=== PATIENT | male | born 1955 | race Caucasian/White ===

== ENCOUNTER 2018-03-16 13:36 | Emergency (ER) | payer OTHER ==
[2018-03-16 16:22] LABS: ABNORMAL IP MESSAGE 1; HEMATOCRIT 21.4 % (42.0-52.0); MEAN CORPUSCULAR HEMOGLOBIN 29.9 pg (29.0-33.0); MEAN CORPUSCULAR HGB CONC 32.2 g/dl (32.0-37.0); MEAN CORPUSCULAR VOLUME 92.6 fl (82.0-101.0); MEAN PLATELET VOLUME 10.2 fl (7.4-10.4); PLATELET COUNT 113 10^3/UL (140-415); POSITIVE DIFF @See below; RED BLOOD COUNT 2.31 10^6/ul (4.70-6.10); RED CELL DISTRIBUTION WIDTH 21.2 % (11.5-14.5)
[2018-03-16 16:22] LABS: WHITE BLOOD COUNT 7.9 10^3/ul (4.8-10.8)
[2018-03-16 16:27] LABS: ADD MAN DIFF? YES; HEMOGLOBIN 6.9 g/dl (14.0-18.0)
[2018-03-16 16:42] LABS: INR 1.13; PROTIME 14.7 Sec (11.9-14.9); PT RATIO 1.1
[2018-03-16 16:43] LABS: PARTIAL THROMBOPLASTIN TIME 33.8 Sec (23.0-35.0)
[2018-03-16 16:45] LABS: ALANINE AMINOTRANSFERASE 36 IU/L (13-69); ALBUMIN 3.1 g/dl (3.3-4.9); ALBUMIN/GLOBULIN RATIO 0.83; ALKALINE PHOSPHATASE 92 IU/L (42-121); ANION GAP 9 (5-13); ASPARTATE AMINO TRANSFERASE 40 IU/L (15-46); BILIRUBIN,INDIRECT 1.4 mg/dl (0-1.1); BILIRUBIN,TOTAL 1.4 mg/dl (0.2-1.3); BLOOD UREA NITROGEN 15 mg/dl (7-20); CALCIUM 9.3 mg/dl (8.4-10.2); CARBON DIOXIDE 22 mmol/L (21-31); CHLORIDE 103 mmol/L (97-110); CREATININE 0.99 mg/dl (0.61-1.24); Estimated GFR > 60 mL/min (>60); GLUCOSE 93 mg/dl (70-220); SODIUM 134 mmol/L (135-144); TOTAL PROTEIN 6.8 g/dl (6.1-8.1)
[2018-03-16 16:56] LABS: TROPONIN-I < 0.012 ng/ml (0.000-0.120)
[2018-03-16 17:15] LABS: ANISOCYTOSIS 1+ (0-0); BAND NEUTROPHILS #M 0.6 10^3/ul (0.0-0.6); BAND NEUTROPHILS % (M) 8 % (0-4); HYPOCHROMASIA 2+ (0-0); LYMPHOCYTES #M 1.5 10^3/ul (0.8-2.9); LYMPHOCYTES % (M) 20 % (15-51); MICROCYTOSIS 1+ (0-0); MONOCYTE #M 0.8 10^3/ul (0.3-0.9); MONOCYTES % (M) 11 % (0-11); MYELOCYTES % (M) 1 % (0-0); PLATELET ESTIMATE DECREASED; POLYCHROMASIA 1+ (0-0); SEG NEUT #M 4.8 10^3/ul (1.6-7.5); SEGMENTED NEUTROPHILS (M) % 60 % (39-77); SMUDGE%M 2 % (0-0)
[2018-03-16 20:05] LABS: IMMEDIATE SPIN CROSSMATCH 1 2
== END 2018-03-16 23:13 | disposition home or self-care (01) ==
LOC: E/R 13:36
PROVIDERS: Pediatrics
DX: D64.9 Anemia, unspecified (principal); D69.6 Thrombocytopenia, unspecified; R53.83 Other fatigue; Z85.118 Personal history of other malignant neoplasm of bronchus and lung; Z87.891 Personal history of nicotine dependence
CPT/HCPCS: 36415; 36430; 80053; 84484; 85025; 85610; 85730; 86850; 86900; 86901; 86920; 93005; 99284-25

== ENCOUNTER 2018-08-30 18:45 | Inpatient (IN) | payer OTHER ==
[2018-08-30] MEDS: SOD CHLORIDE 0.9% 1,000 ML IV (19:36)
[2018-08-30 19:39] LABS: ADD MAN DIFF? NO
[2018-08-30] MEDS: ONDANSETRON 4 MG INJ IV (19:41)
[2018-08-30 19:44] LABS: WHITE BLOOD COUNT 19.9 10^3/ul (4.8-10.8)
[2018-08-30 19:44] LABS: BASOPHILS % 0.2 % (0.0-2.0); EOSINOPHILS # 0.1 10^3/ul (0.0-0.5); EOSINOPHILS % 0.6 % (0.0-7.0); HEMATOCRIT 30.6 % (42.0-52.0); HEMOGLOBIN 9.4 g/dl (14.0-18.0); LYMPHOCYTES # 1.5 10^3/ul (0.8-2.9); LYMPHOCYTES % 7.4 % (15.0-51.0); MEAN CORPUSCULAR HEMOGLOBIN 23.6 pg (29.0-33.0); MEAN CORPUSCULAR HGB CONC 30.7 g/dl (32.0-37.0); MEAN CORPUSCULAR VOLUME 76.7 fl (82.0-101.0); MEAN PLATELET VOLUME 9.2 fl (7.4-10.4); MONOCYTE # 1.3 10^3/ul (0.3-0.9); MONOCYTES % 6.5 % (0.0-11.0); NEUTROPHIL # 16.8 10^3/ul (1.6-7.5); NEUTROPHILS % 84.2 % (39.0-77.0); PLATELET COUNT 372 10^3/UL (140-415); RED BLOOD COUNT 3.99 10^6/ul (4.70-6.10); RED CELL DISTRIBUTION WIDTH 16.4 % (11.5-14.5)
[2018-08-30 20:00] LABS: INR 1.23; PROTIME 15.6 Sec (11.9-14.9); PT RATIO 1.2
[2018-08-30 20:01] LABS: PARTIAL THROMBOPLASTIN TIME 26.3 Sec (23.0-35.0)
[2018-08-30 20:04] LABS: ALANINE AMINOTRANSFERASE 71 IU/L (13-69); ALBUMIN 3.4 g/dl (3.3-4.9); ALBUMIN/GLOBULIN RATIO 0.87; ALKALINE PHOSPHATASE 120 IU/L (42-121); ANION GAP 10 (5-13); ASPARTATE AMINO TRANSFERASE 77 IU/L (15-46); BILIRUBIN,INDIRECT 0.1 mg/dl (0-1.1); BILIRUBIN,TOTAL 0.1 mg/dl (0.2-1.3); BLOOD UREA NITROGEN 37 mg/dl (7-20); CALCIUM 12.4 mg/dl (8.4-10.2); CARBON DIOXIDE 26 mmol/L (21-31); CHLORIDE 95 mmol/L (97-110); CREATININE 1.33 mg/dl (0.61-1.24); Estimated GFR 55 mL/min (>60); GLUCOSE 102 mg/dl (70-220); LIPASE 21 U/L (23-300); POTASSIUM 4.2 mmol/L (3.5-5.1); SODIUM 131 mmol/L (135-144); TOTAL PROTEIN 7.3 g/dl (6.1-8.1)
[2018-08-30 20:16] LABS: TROPONIN-I < 0.012 ng/ml (0.000-0.120)
[2018-08-31] MEDS ORDERED: ALBUTEROL/IPRATROPIUM (NEB) 3 ML AMP HHN
[2018-08-31] MEDS ORDERED: NACL 0.9% 3 ML SYG IV
[2018-08-31] MEDS ORDERED: ACETAMINOPHEN 325 MG TAB PO
[2018-08-31] MEDS: SOD CHLORIDE 0.9% 1,000 ML IV ×3 (00:43→20:34)
[2018-08-31] MEDS: HYDROCODONE/APAP (5/325) TAB PO (03:08)
[2018-08-31] MEDS: KETOROLAC 30 MG INJ IV (04:50)
[2018-08-31 05:59] LABS: ADD MAN DIFF? NO
[2018-08-31 06:03] LABS: BASOPHILS % 0.2 % (0.0-2.0); EOSINOPHILS # 0.3 10^3/ul (0.0-0.5); EOSINOPHILS % 1.8 % (0.0-7.0); HEMOGLOBIN 8.6 g/dl (14.0-18.0); LYMPHOCYTES # 0.9 10^3/ul (0.8-2.9); LYMPHOCYTES % 5.7 % (15.0-51.0); MEAN CORPUSCULAR HEMOGLOBIN 23.9 pg (29.0-33.0); MEAN CORPUSCULAR HGB CONC 30.7 g/dl (32.0-37.0); MEAN CORPUSCULAR VOLUME 77.8 fl (82.0-101.0); MEAN PLATELET VOLUME 9.8 fl (7.4-10.4); MONOCYTE # 0.9 10^3/ul (0.3-0.9); MONOCYTES % 5.9 % (0.0-11.0); NEUTROPHIL # 13.7 10^3/ul (1.6-7.5); NEUTROPHILS % 85.4 % (39.0-77.0); PLATELET COUNT 311 10^3/UL (140-415); RED CELL DISTRIBUTION WIDTH 16.2 % (11.5-14.5)
[2018-08-31 06:40] LABS: HEMOGLOBIN A1C 5.7 % (0-5.9)
[2018-08-31 06:54] LABS: ALANINE AMINOTRANSFERASE 59 IU/L (13-69); ALBUMIN 2.8 g/dl (3.3-4.9); ALBUMIN/GLOBULIN RATIO 0.82; ALKALINE PHOSPHATASE 95 IU/L (42-121); ANION GAP 7 (5-13); ASPARTATE AMINO TRANSFERASE 56 IU/L (15-46); BILIRUBIN,INDIRECT 0.1 mg/dl (0-1.1); BILIRUBIN,TOTAL 0.1 mg/dl (0.2-1.3); BLOOD UREA NITROGEN 32 mg/dl (7-20); CALCIUM 12.1 mg/dl (8.4-10.2); CARBON DIOXIDE 26 mmol/L (21-31); CHLORIDE 100 mmol/L (97-110); CHOL/HDL RATIO 4.8 RATIO; CHOLESTEROL 112 mg/dl (100-200); Estimated GFR > 60 mL/min (>60); GLUCOSE 87 mg/dl (70-220); HDL CHOLESTEROL 23 mg/dl (30-78); LDL CHOLESTEROL,CALCULATED 70 mg/dl; POTASSIUM 3.9 mmol/L (3.5-5.1); SODIUM 133 mmol/L (135-144); TOTAL PROTEIN 6.2 g/dl (6.1-8.1); TRIGLYCERIDES 94 mg/dl (0-149)
[2018-08-31 06:56] LABS: THYROID STIMULATING HORMONE 0.316 MIU/L (0.465-4.680)
[2018-08-31] MEDS: HEPARIN 5,000 UNIT/1 ML VIAL SC ×2 (10:16→20:39)
[2018-08-31 12:36] LABS: UR BACTERIA FEW /HPF (NONE SEEN); UR MUCUS FEW /HPF (NONE SEEN); UR RBC 1 /HPF (0-5); UR WBC 3 /HPF (0-5)
[2018-08-31] MEDS: morphine 2 MG INJ IV ×5 (13:19→23:58)
[2018-08-31] MEDS: CEFTRIAXONE 1 GM/50 ML (PMX) 50 ML IVPB (14:02)
[2018-08-31 19:41] LABS: ADD UMIC NO; UR ASCORBIC ACID NEGATIVE (NEGATIVE); UR BILIRUBIN (Dip) NEGATIVE (NEGATIVE); UR BLOOD (Dip) NEGATIVE (NEGATIVE); UR CLARITY SLIGHTLY CLOUDY (CLEAR); UR COLOR YELLOW (YELLOW); UR GLUCOSE (Dip) NEGATIVE (NEGATIVE); UR KETONES (Dip) NEGATIVE (NEGATIVE); UR LEUKOCYTE ESTERASE (Dip) NEGATIVE Leu/ul (NEGATIVE); UR NITRITE (Dip) NEGATIVE (NEGATIVE); UR SPECIFIC GRAVITY (Dip) 1.018 (1.003-1.030); UR TOTAL PROTEIN (Dip) NEGATIVE (NEGATIVE); UR UROBILINOGEN (Dip) NEGATIVE (NEGATIVE)
[2018-09-01 02:43] LABS: IMMEDIATE SPIN CROSSMATCH 1 2
[2018-09-01] MEDS: morphine 2 MG INJ IV ×3 (03:01→13:59)
[2018-09-01] MEDS: KETOROLAC 15 MG INJ IV (04:57)
[2018-09-01] MEDS: SOD CHLORIDE 0.9% 1,000 ML IV (05:55)
[2018-09-01] MEDS: HEPARIN 5,000 UNIT/1 ML VIAL SC (09:43)
[2018-09-01 10:10] LABS: ADD MAN DIFF? NO
[2018-09-01 10:14] LABS: BASOPHILS % 0.3 % (0.0-2.0); EOSINOPHILS # 0.3 10^3/ul (0.0-0.5); EOSINOPHILS % 2.2 % (0.0-7.0); HEMOGLOBIN 10.3 g/dl (14.0-18.0); LYMPHOCYTES # 1.2 10^3/ul (0.8-2.9); LYMPHOCYTES % 7.7 % (15.0-51.0); MEAN CORPUSCULAR HEMOGLOBIN 25.1 pg (29.0-33.0); MEAN CORPUSCULAR HGB CONC 32.2 g/dl (32.0-37.0); MEAN CORPUSCULAR VOLUME 77.9 fl (82.0-101.0); MEAN PLATELET VOLUME 10.1 fl (7.4-10.4); MONOCYTE # 0.8 10^3/ul (0.3-0.9); MONOCYTES % 5.6 % (0.0-11.0); NEUTROPHIL # 12.5 10^3/ul (1.6-7.5); NEUTROPHILS % 83.3 % (39.0-77.0); PLATELET COUNT 303 10^3/UL (140-415); RED BLOOD COUNT 4.11 10^6/ul (4.70-6.10)
[2018-09-01 10:32] LABS: IRON 27 ug/dl (35-150)
[2018-09-01 10:37] LABS: ANION GAP 4 (5-13); BLOOD UREA NITROGEN 22 mg/dl (7-20); CALCIUM 11.6 mg/dl (8.4-10.2); CARBON DIOXIDE 23 mmol/L (21-31); CHLORIDE 106 mmol/L (97-110); CREATININE 0.87 mg/dl (0.61-1.24); Estimated GFR > 60 mL/min (>60); GLUCOSE 87 mg/dl (70-220); POTASSIUM 3.4 mmol/L (3.5-5.1); SODIUM 133 mmol/L (135-144)
[2018-09-01 10:45] LABS: % IRON SATURATION 16 % SAT (22-52); TOTAL IRON BINDING CAPACITY 168 ug/dl (241-421)
[2018-09-01 12:22] LABS: THYROID STIMULATING HORMONE 0.372 MIU/L (0.465-4.680)
[2018-09-01] MEDS: CEFTRIAXONE 1 GM/50 ML (PMX) 50 ML IVPB (14:02)
[2018-09-01] MEDS: POTASSIUM CHLORIDE (SR) 20 MEQ TAB PO (15:29)
== END 2018-09-01 16:19 | disposition home or self-care (01) | DRG 312 ==
LOC: E/R 18:45 → TEL 20:11
PROVIDERS: Pediatrics
PROC: 30233N1 Transfusion of Nonautologous Red Blood Cells into Peripheral Vein, Percutaneous Approach (ICD-10-PCS; principal; 2018-08-31)
DX: I95.1 Orthostatic hypotension (principal); J18.9 Pneumonia, unspecified organism; N17.9 Acute kidney failure, unspecified; C34.91 Malignant neoplasm of unspecified part of right bronchus or lung; C79.9 Secondary malignant neoplasm of unspecified site; E87.1 Hypo-osmolality and hyponatremia; E46 Unspecified protein-calorie malnutrition; Z68.1 Body mass index [BMI] 19.9 or less, adult; R55 Syncope and collapse; E86.0 Dehydration; S00.81XA Abrasion of other part of head, initial encounter; D72.829 Elevated white blood cell count, unspecified; Z72.0 Tobacco use; M54.5 Low back pain; D64.9 Anemia, unspecified
CPT/HCPCS: 36415; 36430; 70450; 71045; 76775; 80048; 80053; 80061; 81001; 81003; 82533; 83036; 83540; 83690; 83735; 84443; 84484; 85025; 85610; 85730; 86850; 86900; 86901; 86920; 87040-91; 87086; 93005; 93306; 96374; 99285-25

== ENCOUNTER 2018-09-12 13:32 | Observation (INO) | payer OTHER ==
[2018-09-12] MEDS: ONDANSETRON 4 MG INJ IV (14:19)
[2018-09-12] MEDS: SOD CHLORIDE 0.9% 1,000 ML IV ×3 (14:30→18:50)
[2018-09-12 15:24] LABS: ADD MAN DIFF? NO
[2018-09-12 15:28] LABS: WHITE BLOOD COUNT 18.8 10^3/ul (4.8-10.8)
[2018-09-12 15:28] LABS: BASOPHILS % 0.2 % (0.0-2.0); EOSINOPHILS # 0.1 10^3/ul (0.0-0.5); EOSINOPHILS % 0.3 % (0.0-7.0); HEMATOCRIT 29.2 % (42.0-52.0); LYMPHOCYTES % 5.3 % (15.0-51.0); MEAN CORPUSCULAR HEMOGLOBIN 24.9 pg (29.0-33.0); MEAN CORPUSCULAR HGB CONC 30.8 g/dl (32.0-37.0); MEAN CORPUSCULAR VOLUME 80.7 fl (82.0-101.0); MEAN PLATELET VOLUME 9.3 fl (7.4-10.4); MONOCYTE # 1.4 10^3/ul (0.3-0.9); MONOCYTES % 7.4 % (0.0-11.0); NEUTROPHIL # 16.2 10^3/ul (1.6-7.5); PLATELET COUNT 268 10^3/UL (140-415); RED BLOOD COUNT 3.62 10^6/ul (4.70-6.10); RED CELL DISTRIBUTION WIDTH 18.1 % (11.5-14.5)
[2018-09-12 15:46] LABS: ALANINE AMINOTRANSFERASE 33 IU/L (13-69); ALBUMIN 2.8 g/dl (3.3-4.9); ALBUMIN/GLOBULIN RATIO 0.77; ALKALINE PHOSPHATASE 126 IU/L (42-121); ANION GAP 4 (5-13); ASPARTATE AMINO TRANSFERASE 28 IU/L (15-46); BILIRUBIN,INDIRECT 0.3 mg/dl (0-1.1); BILIRUBIN,TOTAL 0.3 mg/dl (0.2-1.3); BLOOD UREA NITROGEN 22 mg/dl (7-20); CALCIUM 12.1 mg/dl (8.4-10.2); CARBON DIOXIDE 26 mmol/L (21-31); CHLORIDE 105 mmol/L (97-110); CREATININE 0.95 mg/dl (0.61-1.24); Estimated GFR > 60 mL/min (>60); GLUCOSE 102 mg/dl (70-220); LIPASE < 10 U/L (23-300); SODIUM 135 mmol/L (135-144); TOTAL PROTEIN 6.4 g/dl (6.1-8.1)
[2018-09-12 16:04] LABS: URINE BLOOD (Dip) POC Trace-intact (NEGATIVE); URINE GLUCOSE (Dip) POC Negative (NEGATIVE); URINE KETONES (Dip) POC Negative (NEGATIVE); URINE LEUKOCYTE EST (Dip) POC Negative (NEGATIVE); URINE NITRITE (Dip) POC Negative (NEGATIVE); URINE TOTAL PROTEIN POC Negative (NEGATIVE)
[2018-09-12] MEDS ORDERED: NACL 0.9% 3 ML SYG IV (17:00)
[2018-09-12] MEDS ORDERED: ACETAMINOPHEN 325 MG TAB PO (17:00)
[2018-09-12] MEDS: morphine 2 MG INJ IV ×2 (17:24→23:04)
[2018-09-12] MEDS: FERROUS SULFATE (EC) 325 MG TAB PO (21:00)
[2018-09-12] MEDS: SERTRALINE 100 MG TAB PO (21:00)
[2018-09-12] MEDS: DOCUSATE SODIUM 100 MG CAP PO (21:00)
[2018-09-12] MEDS: FAMOTIDINE 20 MG TAB PO (21:00)
[2018-09-12] MEDS: METOCLOPRAMIDE 10 MG INJ IV (23:09)
[2018-09-13] MEDS: SOD CHLORIDE 0.9% 1,000 ML IV ×2 (04:45→14:29)
[2018-09-13] MEDS: METOCLOPRAMIDE 10 MG INJ IV ×2 (04:48→11:15)
[2018-09-13] MEDS: morphine 2 MG INJ IV ×4 (04:48→17:43)
[2018-09-13 05:16] LABS: ADD MAN DIFF? NO
[2018-09-13 05:19] LABS: BASOPHILS % 0.2 % (0.0-2.0); EOSINOPHILS % 0.2 % (0.0-7.0); HEMATOCRIT 34.3 % (42.0-52.0); HEMOGLOBIN 10.7 g/dl (14.0-18.0); LYMPHOCYTES # 1.4 10^3/ul (0.8-2.9); LYMPHOCYTES % 7.3 % (15.0-51.0); MEAN CORPUSCULAR HEMOGLOBIN 24.8 pg (29.0-33.0); MEAN CORPUSCULAR HGB CONC 31.2 g/dl (32.0-37.0); MEAN CORPUSCULAR VOLUME 79.4 fl (82.0-101.0); MEAN PLATELET VOLUME 9.8 fl (7.4-10.4); MONOCYTE # 1.2 10^3/ul (0.3-0.9); MONOCYTES % 6.1 % (0.0-11.0); NEUTROPHIL # 16.2 10^3/ul (1.6-7.5); NEUTROPHILS % 85.5 % (39.0-77.0); PLATELET COUNT 294 10^3/UL (140-415); RED BLOOD COUNT 4.32 10^6/ul (4.70-6.10); RED CELL DISTRIBUTION WIDTH 18.3 % (11.5-14.5)
[2018-09-13 05:19] LABS: WHITE BLOOD COUNT 18.9 10^3/ul (4.8-10.8)
[2018-09-13 05:41] LABS: PHOSPHORUS 3.6 mg/dl (2.5-4.9)
[2018-09-13 05:41] LABS: MAGNESIUM 1.9 mg/dl (1.7-2.5)
[2018-09-13 05:50] LABS: ANION GAP 10 (5-13); BLOOD UREA NITROGEN 19 mg/dl (7-20); CALCIUM 12.7 mg/dl (8.4-10.2); CARBON DIOXIDE 24 mmol/L (21-31); CHLORIDE 103 mmol/L (97-110); CREATININE 0.96 mg/dl (0.61-1.24); Estimated GFR > 60 mL/min (>60); GLUCOSE 89 mg/dl (70-220); POTASSIUM 4.4 mmol/L (3.5-5.1); SODIUM 137 mmol/L (135-144)
[2018-09-13 06:34] LABS: HEMOGLOBIN A1C 5.6 % (0-5.9)
[2018-09-13] MEDS: ONDANSETRON 4 MG INJ IV (08:02)
[2018-09-13] MEDS: ENOXAPARIN 30 MG/0.3 ML SYG SC (08:06)
[2018-09-13] MEDS: FERROUS SULFATE (EC) 325 MG TAB PO (10:12)
[2018-09-13] MEDS: DOCUSATE SODIUM 100 MG CAP PO ×2 (10:12→21:12)
[2018-09-13] MEDS: FAMOTIDINE 20 MG TAB PO ×2 (10:12→21:12)
[2018-09-13] MEDS: HYDROCODONE/APAP (5/325) TAB PO ×2 (11:15→21:12)
[2018-09-13 13:20] LABS: IRON 28 ug/dl (35-150)
[2018-09-13 13:21] LABS: INR 1.22; PARTIAL THROMBOPLASTIN TIME 30.3 Sec (23.0-35.0); PROTIME 15.5 Sec (11.9-14.9); PT RATIO 1.2
[2018-09-13 13:29] LABS: % IRON SATURATION 16 % SAT (22-52); TOTAL IRON BINDING CAPACITY 172 ug/dl (241-421)
[2018-09-13 13:37] LABS: FREE T4 (FREE THYROXINE) 1.16 ng/dl (0.78-2.44)
[2018-09-13 13:39] LABS: FREE T3 2.83 pg/ml (2.77-5.27)
[2018-09-13 13:41] LABS: ADD UMIC NO; UR ASCORBIC ACID NEGATIVE (NEGATIVE); UR BILIRUBIN (Dip) NEGATIVE (NEGATIVE); UR BLOOD (Dip) NEGATIVE (NEGATIVE); UR CLARITY CLEAR (CLEAR); UR COLOR YELLOW (YELLOW); UR GLUCOSE (Dip) NEGATIVE (NEGATIVE); UR KETONES (Dip) TRACE mg/dL (NEGATIVE); UR LEUKOCYTE ESTERASE (Dip) NEGATIVE Leu/ul (NEGATIVE); UR NITRITE (Dip) NEGATIVE (NEGATIVE); UR SPECIFIC GRAVITY (Dip) 1.014 (1.003-1.030); UR TOTAL PROTEIN (Dip) NEGATIVE (NEGATIVE); UR UROBILINOGEN (Dip) NEGATIVE (NEGATIVE)
[2018-09-13 14:15] LABS: IRON 26 ug/dl (35-150)
[2018-09-13 14:24] LABS: % IRON SATURATION 15 % SAT (22-52); TOTAL IRON BINDING CAPACITY 178 ug/dl (241-421)
[2018-09-13] MEDS: POLYETHYLENE GLYCOL 17 GM PACKET PO (14:32)
[2018-09-13] MEDS ORDERED: METOCLOPRAMIDE 10 MG INJ IV (17:00)
[2018-09-13] MEDS: ONDANSETRON INJ 8 MG in DEXTROSE 5% 50 ML IV (17:43)
[2018-09-13] MEDS: SERTRALINE 100 MG TAB PO (21:11)
[2018-09-14] MEDS: morphine 2 MG INJ IV ×3 (00:06→11:23)
[2018-09-14] MEDS: ONDANSETRON INJ 8 MG in DEXTROSE 5% 50 ML IV (05:00)
[2018-09-14 08:29] LABS: ADD MAN DIFF? NO
[2018-09-14 08:42] LABS: BASOPHILS % 0.2 % (0.0-2.0); EOSINOPHILS % 0.1 % (0.0-7.0); HEMATOCRIT 34.4 % (42.0-52.0); HEMOGLOBIN 10.5 g/dl (14.0-18.0); LYMPHOCYTES # 0.8 10^3/ul (0.8-2.9); LYMPHOCYTES % 4.8 % (15.0-51.0); MEAN CORPUSCULAR HEMOGLOBIN 24.5 pg (29.0-33.0); MEAN CORPUSCULAR HGB CONC 30.5 g/dl (32.0-37.0); MEAN CORPUSCULAR VOLUME 80.4 fl (82.0-101.0); MEAN PLATELET VOLUME 10.3 fl (7.4-10.4); MONOCYTE # 0.9 10^3/ul (0.3-0.9); MONOCYTES % 5.3 % (0.0-11.0); NEUTROPHIL # 15.3 10^3/ul (1.6-7.5); NEUTROPHILS % 88.8 % (39.0-77.0); PLATELET COUNT 303 10^3/UL (140-415); RED BLOOD COUNT 4.28 10^6/ul (4.70-6.10); RED CELL DISTRIBUTION WIDTH 18.3 % (11.5-14.5)
[2018-09-14 08:42] LABS: WHITE BLOOD COUNT 17.2 10^3/ul (4.8-10.8)
[2018-09-14 08:59] LABS: LACTIC ACID 1.4 mmol/L (0.5-2.0)
[2018-09-14] MEDS: FAMOTIDINE 20 MG INJ IV (09:00)
[2018-09-14 09:10] LABS: ALANINE AMINOTRANSFERASE 28 IU/L (13-69); ALBUMIN/GLOBULIN RATIO 0.85; ALKALINE PHOSPHATASE 148 IU/L (42-121); ANION GAP 9 (5-13); ASPARTATE AMINO TRANSFERASE 31 IU/L (15-46); BILIRUBIN,INDIRECT 0.4 mg/dl (0-1.1); BILIRUBIN,TOTAL 0.4 mg/dl (0.2-1.3); BLOOD UREA NITROGEN 16 mg/dl (7-20); CARBON DIOXIDE 22 mmol/L (21-31); CHLORIDE 106 mmol/L (97-110); CREATININE 0.88 mg/dl (0.61-1.24); Estimated GFR > 60 mL/min (>60); GLUCOSE 102 mg/dl (70-220); POTASSIUM 4.3 mmol/L (3.5-5.1); SODIUM 137 mmol/L (135-144); TOTAL PROTEIN 6.5 g/dl (6.1-8.1)
[2018-09-14] MEDS: DOCUSATE SODIUM 100 MG CAP PO (09:13)
[2018-09-14] MEDS: ENOXAPARIN 30 MG/0.3 ML SYG SC (09:13)
[2018-09-14] MEDS: POLYETHYLENE GLYCOL 17 GM PACKET PO (09:13)
[2018-09-14 09:22] LABS: CALCIUM 13.3 mg/dl (8.4-10.2)
[2018-09-14] MEDS: PANTOPRAZOLE 40 MG INJ IV (09:33)
[2018-09-14] MEDS: FAMOTIDINE 20 MG TAB PO (09:34)
[2018-09-14 10:01] LABS: C-REACTIVE PROTEIN 16.8 mg/dl (0.0-0.9)
[2018-09-14] MEDS: METOCLOPRAMIDE IV (13:19)
[2018-09-14] MEDS: SOD CHLORIDE 0.9% IV (13:19)
[2018-09-14] MEDS: SOD CHLORIDE 0.9% 1,000 ML IV (13:20)
[2018-09-14] MEDS: FUROSEMIDE 40 MG INJ IV (13:32)
[2018-09-18 09:01] LABS: PROCALCITONIN <0.10 ng/mL (<0.10)
[2018-09-20] MEDS ORDERED: FERROUS SULFATE (EC) 325 MG TAB PO (21:00)
== END 2018-09-14 15:00 | disposition home or self-care (01) ==
LOC: E/R 13:32 → 2NE 16:17
DX: R11.2 Nausea with vomiting, unspecified (principal); C34.31 Malignant neoplasm of lower lobe, right bronchus or lung; E86.0 Dehydration; K59.00 Constipation, unspecified; M54.5 Low back pain; Z87.891 Personal history of nicotine dependence; R05 Cough
CPT/HCPCS: 70552; 71045; 74018; 80048; 80053; 81003; 82728; 83036; 83540; 83605; 83690; 83735; 84100; 84145; 84439; 84443; 84481; 85025; 85610; 85651; 85730; 86140; 96374; 99285-25

== ENCOUNTER 2018-10-22 10:14 | Inpatient (IN) | payer OTHER ==
[2018-10-22 11:05] LABS: ADD MAN DIFF? NO
[2018-10-22 11:21] LABS: WHITE BLOOD COUNT 12.1 10^3/ul (4.8-10.8)
[2018-10-22 11:21] LABS: ABNORMAL IP MESSAGE 1; BASOPHILS % 0.2 % (0.0-2.0); EOSINOPHILS % 0.1 % (0.0-7.0); HEMATOCRIT 25.3 % (42.0-52.0); HEMOGLOBIN 7.6 g/dl (14.0-18.0); LYMPHOCYTES # 0.8 10^3/ul (0.8-2.9); LYMPHOCYTES % 6.7 % (15.0-51.0); MEAN CORPUSCULAR HEMOGLOBIN 25.3 pg (29.0-33.0); MEAN CORPUSCULAR VOLUME 84.3 fl (82.0-101.0); MEAN PLATELET VOLUME 9.3 fl (7.4-10.4); MONOCYTE # 1.5 10^3/ul (0.3-0.9); NEUTROPHIL # 7.1 10^3/ul (1.6-7.5); NEUTROPHILS % 58.4 % (39.0-77.0); PLATELET COUNT 377 10^3/UL (140-415); POSITIVE DIFF @See below; RED CELL DISTRIBUTION WIDTH 18.5 % (11.5-14.5)
[2018-10-22 11:24] LABS: ALANINE AMINOTRANSFERASE 25 IU/L (13-69); ALBUMIN 3.6 g/dl (3.3-4.9); ALKALINE PHOSPHATASE 139 IU/L (42-121); ANION GAP 7 (5-13); ASPARTATE AMINO TRANSFERASE 32 IU/L (15-46); BILIRUBIN,INDIRECT 0.2 mg/dl (0-1.1); BILIRUBIN,TOTAL 0.2 mg/dl (0.2-1.3); BLOOD UREA NITROGEN 25 mg/dl (7-20); CARBON DIOXIDE 31 mmol/L (21-31); CHLORIDE 98 mmol/L (97-110); CREATINE KINASE 20 IU/L (23-200); CREATININE 1.28 mg/dl (0.61-1.24); Estimated GFR 57 mL/min (>60); GLUCOSE 121 mg/dl (70-220); POTASSIUM 4.3 mmol/L (3.5-5.1); SODIUM 136 mmol/L (135-144); TOTAL PROTEIN 7.6 g/dl (6.1-8.1)
[2018-10-22 11:28] LABS: INR 1.13; PROTIME 14.6 Sec (11.9-14.9); PT RATIO 1.1
[2018-10-22 11:30] LABS: CALCIUM 13.8 mg/dl (8.4-10.2)
[2018-10-22] MEDS ORDERED: ACETAMINOPHEN 325 MG TAB PO ×2 (11:30→13:00)
[2018-10-22] MEDS ORDERED: ONDANSETRON 4 MG INJ IV (11:30)
[2018-10-22 11:37] LABS: B-TYPE NATRIURETIC PEPTIDE 1610 PG/ML (0-125); CK INDEX 3.7; CK-MB 0.74 ng/ml (0.0-2.4); TROPONIN-I < 0.012 ng/ml (0.000-0.120)
[2018-10-22] MEDS: SOD CHLORIDE 0.9% 1,000 ML IV ×3 (12:00→23:37)
[2018-10-22] MEDS: ZOLEDRONIC ACID 4 MG in SOD CHLORIDE 0.9% 100 ML IVPB (12:04)
[2018-10-22] MEDS ORDERED: HYDROmorphONE 1 MG/ML SYG (12:16)
[2018-10-22 12:23] LABS: ANISOCYTOSIS 1+ (0-0); BAND NEUTROPHILS #M 1.6 10^3/ul (0.0-0.6); BAND NEUTROPHILS % (M) 14 % (0-4); GIANT THROMBO% (M) 2 % (0-0); LYMPHOCYTES #M 1.9 10^3/ul (0.8-2.9); LYMPHOCYTES % (M) 16 % (15-51); MICROCYTOSIS 1+ (0-0); MONOCYTE #M 1.8 10^3/ul (0.3-0.9); MONOCYTES % (M) 15 % (0-11); MYELOCYTES #M 0.7 10^3/ul (0.0-0.0); MYELOCYTES % (M) 6 % (0-0); PLATELET ESTIMATE NORMAL; POLYCHROMASIA 1+ (0-0); PROMYELOCYTES #M 0.7 10^3/ul (0-0); PROMYELOCYTES % (M) 6 % (0-0); SEG NEUT #M 5.4 10^3/ul (1.6-7.5); SEGMENTED NEUTROPHILS (M) % 43 % (39-77); SMUDGE%M 26 % (0-0)
[2018-10-22] MEDS: ONDANSETRON 4 MG INJ IV (12:25)
[2018-10-22] MEDS: HYDROmorphONE 1 MG/ML SYG IV (12:44)
[2018-10-22] MEDS ORDERED: NACL 0.9% 3 ML SYG IV (13:00)
[2018-10-22] MEDS ORDERED: HEPARIN 5,000 UNIT/1 ML VIAL SC (14:00)
[2018-10-22] MEDS: HYDROmorphONE 0.5 MG/0.5 ML SYG IV (19:55)
[2018-10-22] MEDS: FERROUS SULFATE (EC) 325 MG TAB PO (20:57)
[2018-10-22] MEDS: SERTRALINE 100 MG TAB PO (20:59)
[2018-10-23] MEDS: HYDROmorphONE 0.5 MG/0.5 ML SYG IV ×5 (00:44→22:08)
[2018-10-23 05:13] LABS: WHITE BLOOD COUNT 12.6 10^3/ul (4.8-10.8)
[2018-10-23 05:13] LABS: ABNORMAL IP MESSAGE 1; HEMATOCRIT 23.9 % (42.0-52.0); HEMOGLOBIN 7.1 g/dl (14.0-18.0); MEAN CORPUSCULAR HEMOGLOBIN 24.9 pg (29.0-33.0); MEAN CORPUSCULAR HGB CONC 29.7 g/dl (32.0-37.0); MEAN CORPUSCULAR VOLUME 83.9 fl (82.0-101.0); MEAN PLATELET VOLUME 9.2 fl (7.4-10.4); PLATELET COUNT 366 10^3/UL (140-415); POSITIVE DIFF @See below; RED BLOOD COUNT 2.85 10^6/ul (4.70-6.10); RED CELL DISTRIBUTION WIDTH 18.7 % (11.5-14.5)
[2018-10-23 05:40] LABS: ANION GAP 5 (5-13); BLOOD UREA NITROGEN 25 mg/dl (7-20); CALCIUM 12.3 mg/dl (8.4-10.2); CARBON DIOXIDE 29 mmol/L (21-31); CHLORIDE 104 mmol/L (97-110); CREATININE 1.06 mg/dl (0.61-1.24); Estimated GFR > 60 mL/min (>60); GLUCOSE 84 mg/dl (70-220); MAGNESIUM 2.3 mg/dl (1.7-2.5); POTASSIUM 3.9 mmol/L (3.5-5.1); SODIUM 138 mmol/L (135-144)
[2018-10-23 05:40] LABS: PHOSPHORUS 1.5 mg/dl (2.5-4.9)
[2018-10-23 07:55] LABS: ANISOCYTOSIS 2+ (0-0); BAND NEUTROPHILS #M 0.1 10^3/ul (0.0-0.6); BAND NEUTROPHILS % (M) 1 % (0-4); GIANT THROMBO% (M) 4 % (0-0); HYPOCHROMASIA 1+ (0-0); LYMPHOCYTES #M 0.5 10^3/ul (0.8-2.9); LYMPHOCYTES % (M) 4 % (15-51); METAMYELOCYTES #M 0.3 10^3/ul (0.0-0.0); METAMYELOCYTES %M 3 % (0-0); MICROCYTOSIS 1+ (0-0); MONOCYTE #M 1.1 10^3/ul (0.3-0.9); MONOCYTES % (M) 9 % (0-11); MYELOCYTES #M 1.2 10^3/ul (0.0-0.0); MYELOCYTES % (M) 10 % (0-0); OVALOCYTES 1+ (0-0); PLATELET ESTIMATE NORMAL; PLATELET MORPHOLOGY COMMENT @See below; POIKILOCYTOSIS 1+ (0-0); POLYCHROMASIA 2+ (0-0); PROMYELOCYTES #M 0.6 10^3/ul (0-0); PROMYELOCYTES % (M) 5 % (0-0); REACTIVE LYMPHOCYTES #M 0.1 10^3/ul (0.0-0.0); REACTIVE LYMPHOCYTES% (M) 1 % (0-0); SEG NEUT #M 8.5 10^3/ul (1.6-7.5); SEGMENTED NEUTROPHILS (M) % 67 % (39-77); SMUDGE%M 1 % (0-0); TOXIC GRANULATION 1+ (0-0)
[2018-10-23 07:57] LABS: ADD MAN DIFF? YES
[2018-10-23] MEDS: FERROUS SULFATE (EC) 325 MG TAB PO ×2 (08:10→22:04)
[2018-10-23] MEDS: POTASSIUM PHOSPHATE 15 MM in SOD CHLORIDE 0.9% 250 ML IVPB (10:15)
[2018-10-23] MEDS: ONDANSETRON 4 MG INJ IV (12:37)
[2018-10-23] MEDS: SOD CHLORIDE 0.9% 250 ML IV* (15:11)
[2018-10-23 15:13] LABS: IMMEDIATE SPIN CROSSMATCH 1 1
[2018-10-23] MEDS: FUROSEMIDE 20 MG TAB PO (18:23)
[2018-10-23] MEDS: SOD CHLORIDE 0.9% 1,000 ML IV (18:23)
[2018-10-23] MEDS: HYDROCODONE/APAP (5/325) TAB PO (19:32)
[2018-10-23] MEDS: SERTRALINE 100 MG TAB PO (22:04)
[2018-10-24] MEDS: HYDROmorphONE 0.5 MG/0.5 ML SYG IV ×6 (02:05→22:14)
[2018-10-24] MEDS: HYDROCODONE/APAP (5/325) TAB PO (04:15)
[2018-10-24] MEDS: SOD CHLORIDE 0.9% 1,000 ML IV ×3 (04:16→21:15)
[2018-10-24 05:23] LABS: WHITE BLOOD COUNT 16.9 10^3/ul (4.8-10.8)
[2018-10-24 05:23] LABS: ABNORMAL IP MESSAGE 1; HEMATOCRIT 25.5 % (42.0-52.0); HEMOGLOBIN 7.9 g/dl (14.0-18.0); MEAN CORPUSCULAR HEMOGLOBIN 26.3 pg (29.0-33.0); MEAN PLATELET VOLUME 10.2 fl (7.4-10.4); PLATELET COUNT 381 10^3/UL (140-415); POSITIVE DIFF @See below; RED CELL DISTRIBUTION WIDTH 18.9 % (11.5-14.5)
[2018-10-24 05:26] LABS: ADD MAN DIFF? YES
[2018-10-24 05:57] LABS: PHOSPHORUS 2.1 mg/dl (2.5-4.9)
[2018-10-24 05:57] LABS: MAGNESIUM 2.1 mg/dl (1.7-2.5)
[2018-10-24] MEDS: FUROSEMIDE 20 MG TAB PO ×2 (06:11→18:16)
[2018-10-24 06:33] LABS: ANION GAP 6 (5-13); BLOOD UREA NITROGEN 18 mg/dl (7-20); CALCIUM 10.7 mg/dl (8.4-10.2); CARBON DIOXIDE 26 mmol/L (21-31); CHLORIDE 106 mmol/L (97-110); CREATININE 0.93 mg/dl (0.61-1.24); Estimated GFR > 60 mL/min (>60); GLUCOSE 72 mg/dl (70-220); POTASSIUM 3.7 mmol/L (3.5-5.1); SODIUM 138 mmol/L (135-144)
[2018-10-24 08:03] LABS: ANISOCYTOSIS 1+ (0-0); BAND NEUTROPHILS #M 0.6 10^3/ul (0.0-0.6); BAND NEUTROPHILS % (M) 4 % (0-4); LYMPHOCYTES % (M) 6 % (15-51); MICROCYTOSIS 1+ (0-0); MONOCYTE #M 2.3 10^3/ul (0.3-0.9); MONOCYTES % (M) 14 % (0-11); MYELOCYTES #M 1.1 10^3/ul (0.0-0.0); MYELOCYTES % (M) 7 % (0-0); PLATELET ESTIMATE NORMAL; POLYCHROMASIA 1+ (0-0); PROMYELOCYTES #M 0.5 10^3/ul (0-0); PROMYELOCYTES % (M) 3 % (0-0); SEG NEUT #M 11.3 10^3/ul (1.6-7.5); SEGMENTED NEUTROPHILS (M) % 66 % (39-77); SMUDGE%M 3 % (0-0)
[2018-10-24] MEDS: FERROUS SULFATE (EC) 325 MG TAB PO ×2 (09:52→21:13)
[2018-10-24] MEDS: POTASSIUM PHOSPHATE 15 MM in SOD CHLORIDE 0.9% 250 ML IVPB (09:52)
[2018-10-24] MEDS: SERTRALINE 100 MG TAB PO (21:13)
[2018-10-25] MEDS: HYDROmorphONE 1 MG/ML SYG IV ×5 (01:47→22:42)
[2018-10-25] MEDS: ONDANSETRON 4 MG INJ IV (04:01)
[2018-10-25] MEDS ORDERED: HYDROmorphONE 0.5 MG/0.5 ML SYG IV (05:00)
[2018-10-25 05:19] LABS: ADD MAN DIFF? NO
[2018-10-25 05:25] LABS: WHITE BLOOD COUNT 19.3 10^3/ul (4.8-10.8)
[2018-10-25 05:25] LABS: ABNORMAL IP MESSAGE 1; EOSINOPHILS % 0.2 % (0.0-7.0); HEMATOCRIT 27.5 % (42.0-52.0); HEMOGLOBIN 8.5 g/dl (14.0-18.0); LYMPHOCYTES # 1.5 10^3/ul (0.8-2.9); LYMPHOCYTES % 7.7 % (15.0-51.0); MEAN CORPUSCULAR HEMOGLOBIN 26.6 pg (29.0-33.0); MEAN CORPUSCULAR HGB CONC 30.9 g/dl (32.0-37.0); MEAN CORPUSCULAR VOLUME 85.9 fl (82.0-101.0); MEAN PLATELET VOLUME 8.8 fl (7.4-10.4); MONOCYTE # 2.3 10^3/ul (0.3-0.9); NEUTROPHIL # 11.9 10^3/ul (1.6-7.5); NEUTROPHILS % 61.6 % (39.0-77.0); PLATELET COUNT 385 10^3/UL (140-415); POSITIVE DIFF @See below; RED CELL DISTRIBUTION WIDTH 19.7 % (11.5-14.5)
[2018-10-25] MEDS: FUROSEMIDE 20 MG TAB PO ×2 (05:53→18:00)
[2018-10-25 06:13] LABS: ANION GAP 6 (5-13); BLOOD UREA NITROGEN 14 mg/dl (7-20); CARBON DIOXIDE 23 mmol/L (21-31); CHLORIDE 107 mmol/L (97-110); CREATININE 0.81 mg/dl (0.61-1.24); GLUCOSE 88 mg/dl (70-220); POTASSIUM 3.8 mmol/L (3.5-5.1); SODIUM 136 mmol/L (135-144)
[2018-10-25 06:14] LABS: CALCIUM 9.6 mg/dl (8.4-10.2); Estimated GFR > 60 mL/min (>60)
[2018-10-25 06:19] LABS: MAGNESIUM 2.1 mg/dl (1.7-2.5)
[2018-10-25 06:19] LABS: PHOSPHORUS 1.8 mg/dl (2.5-4.9)
[2018-10-25] MEDS ORDERED: HYDROCODONE/APAP (5/325) TAB PO (07:00)
[2018-10-25 08:13] LABS: ANISOCYTOSIS 1+ (0-0); BAND NEUTROPHILS #M 0.7 10^3/ul (0.0-0.6); BAND NEUTROPHILS % (M) 4 % (0-4); BURR CELLS 1+ (0-0); LYMPHOCYTES #M 0.5 10^3/ul (0.8-2.9); LYMPHOCYTES % (M) 3 % (15-51); METAMYELOCYTES #M 0.3 10^3/ul (0.0-0.0); METAMYELOCYTES %M 2 % (0-0); MICROCYTOSIS 2+ (0-0); MONOCYTE #M 2.7 10^3/ul (0.3-0.9); MONOCYTES % (M) 14 % (0-11); MYELOCYTES #M 1.7 10^3/ul (0.0-0.0); MYELOCYTES % (M) 9 % (0-0); PLATELET ESTIMATE NORMAL; POIKILOCYTOSIS 1+ (0-0); POLYCHROMASIA 1+ (0-0); SEG NEUT #M 13.3 10^3/ul (1.6-7.5); SEGMENTED NEUTROPHILS (M) % 68 % (39-77); SMUDGE%M 1 % (0-0)
[2018-10-25] MEDS ORDERED: ONDANSETRON INJ 8 MG in SOD CHLORIDE 0.9% 50 ML IV (08:30)
[2018-10-25] MEDS: METOCLOPRAMIDE 10 MG INJ IV ×2 (08:50→18:48)
[2018-10-25] MEDS: FERROUS SULFATE (EC) 325 MG TAB PO ×2 (08:51→21:35)
[2018-10-25] MEDS ORDERED: IOHEXOL 14.3 MG(I)/ML (ADULT) BTL PO (09:00)
[2018-10-25] MEDS: IOHEXOL 300MG/ML 150 ML BTL (09:44)
[2018-10-25] MEDS: SOD CHLORIDE 0.9% 100 ML (09:44)
[2018-10-25] MEDS: LORAZEPAM 1 MG TAB PO ×2 (10:40→22:42)
[2018-10-25] MEDS: SOD CHLORIDE 0.9% 1,000 ML IV (10:40)
[2018-10-25] MEDS: POTASSIUM PHOSPHATE 20 MEQ in SOD CHLORIDE 0.9% 250 ML IVPB (11:32)
[2018-10-25] MEDS: SERTRALINE 100 MG TAB PO (21:35)
[2018-10-26] MEDS: HYDROCODONE/APAP (5/325) TAB PO ×3 (00:10→16:38)
[2018-10-26] MEDS: HYDROmorphONE 1 MG/ML SYG IV ×3 (03:57→15:43)
[2018-10-26 05:42] LABS: ADD MAN DIFF? NO
[2018-10-26 05:44] LABS: ABNORMAL IP MESSAGE 1; BASOPHILS % 0.2 % (0.0-2.0); EOSINOPHILS % 0.2 % (0.0-7.0); HEMATOCRIT 25.3 % (42.0-52.0); HEMOGLOBIN 7.8 g/dl (14.0-18.0); LYMPHOCYTES # 1.5 10^3/ul (0.8-2.9); LYMPHOCYTES % 7.8 % (15.0-51.0); MEAN CORPUSCULAR HEMOGLOBIN 26.4 pg (29.0-33.0); MEAN CORPUSCULAR HGB CONC 30.8 g/dl (32.0-37.0); MEAN CORPUSCULAR VOLUME 85.5 fl (82.0-101.0); MEAN PLATELET VOLUME 8.8 fl (7.4-10.4); MONOCYTE # 2.2 10^3/ul (0.3-0.9); MONOCYTES % 11.7 % (0.0-11.0); NEUTROPHIL # 12.6 10^3/ul (1.6-7.5); PLATELET COUNT 457 10^3/UL (140-415); POSITIVE DIFF @See below; RED BLOOD COUNT 2.96 10^6/ul (4.70-6.10); RED CELL DISTRIBUTION WIDTH 20.8 % (11.5-14.5)
[2018-10-26 05:44] LABS: WHITE BLOOD COUNT 19.1 10^3/ul (4.8-10.8)
[2018-10-26] MEDS: FUROSEMIDE 20 MG TAB PO (06:22)
[2018-10-26] MEDS: SOD CHLORIDE 0.9% 1,000 ML IV (06:23)
[2018-10-26 06:58] LABS: ANION GAP 7 (5-13); BLOOD UREA NITROGEN 14 mg/dl (7-20); CALCIUM 8.9 mg/dl (8.4-10.2); CARBON DIOXIDE 23 mmol/L (21-31); CHLORIDE 107 mmol/L (97-110); CREATININE 0.85 mg/dl (0.61-1.24); Estimated GFR > 60 mL/min (>60); GLUCOSE 79 mg/dl (70-220); MAGNESIUM 1.9 mg/dl (1.7-2.5); PHOSPHORUS 2.4 mg/dl (2.5-4.9); POTASSIUM 3.6 mmol/L (3.5-5.1); SODIUM 137 mmol/L (135-144)
[2018-10-26 09:44] LABS: ANISOCYTOSIS 1+ (0-0); BAND NEUTROPHILS #M 1.3 10^3/ul (0.0-0.6); BAND NEUTROPHILS % (M) 7 % (0-4); BURR CELLS 1+ (0-0); LYMPHOCYTES #M 1.1 10^3/ul (0.8-2.9); LYMPHOCYTES % (M) 6 % (15-51); MICROCYTOSIS 1+ (0-0); MONOCYTE #M 0.9 10^3/ul (0.3-0.9); MONOCYTES % (M) 5 % (0-11); MYELOCYTES #M 2.4 10^3/ul (0.0-0.0); MYELOCYTES % (M) 13 % (0-0); OVALOCYTES 1+ (0-0); PLATELET ESTIMATE NORMAL; POIKILOCYTOSIS 1+ (0-0); POLYCHROMASIA 3+ (0-0); PROMYELOCYTES #M 0.1 10^3/ul (0-0); PROMYELOCYTES % (M) 1 % (0-0); SEG NEUT #M 13.2 10^3/ul (1.6-7.5); SEGMENTED NEUTROPHILS (M) % 68 % (39-77); SMUDGE%M 6 % (0-0); TARGET CELLS 1+ (0-0)
[2018-10-26] MEDS: FERROUS SULFATE (EC) 325 MG TAB PO (09:59)
[2018-10-26] MEDS: morphine (ER) 15 MG TAB PO (10:00)
[2018-10-26] MEDS: HEPARIN (100 UNITS/ML) 5 ML SYG CATHETER (17:36)
== END 2018-10-26 18:00 | disposition home or self-care (01) | DRG 641 ==
LOC: E/R 10:14 → MS1 11:22
PROC: 30233N1 Transfusion of Nonautologous Red Blood Cells into Peripheral Vein, Percutaneous Approach (ICD-10-PCS; principal; 2018-10-23)
DX: E83.52 Hypercalcemia (principal); C34.91 Malignant neoplasm of unspecified part of right bronchus or lung; N17.9 Acute kidney failure, unspecified; E44.0 Moderate protein-calorie malnutrition; Z68.1 Body mass index [BMI] 19.9 or less, adult; R64 Cachexia; E86.0 Dehydration; G13.0 Paraneoplastic neuromyopathy and neuropathy; D50.9 Iron deficiency anemia, unspecified; D72.829 Elevated white blood cell count, unspecified; D64.9 Anemia, unspecified; F41.9 Anxiety disorder, unspecified; F32.9 Major depressive disorder, single episode, unspecified; D64.81 Anemia due to antineoplastic chemotherapy; D63.0 Anemia in neoplastic disease; Z87.891 Personal history of nicotine dependence
CPT/HCPCS: 36430; 71260; 74177; 80048; 80053; 82550; 82553; 83735; 83880; 84100; 84484; 85025; 85610; 85730; 86850; 86900; 86901; 86920; 93005; 99285-25

== ENCOUNTER 2018-11-07 16:56 | Inpatient (IN) | payer OTHER ==
[2018-11-07] MEDS: SOD CHLORIDE 0.9% 500 ML IV (21:19)
[2018-11-07 21:38] LABS: ABNORMAL IP MESSAGE 1; HEMATOCRIT 27.6 % (42.0-52.0); HEMOGLOBIN 8.4 g/dl (14.0-18.0); MEAN CORPUSCULAR HEMOGLOBIN 27.2 pg (29.0-33.0); MEAN CORPUSCULAR HGB CONC 30.4 g/dl (32.0-37.0); MEAN CORPUSCULAR VOLUME 89.3 fl (82.0-101.0); MEAN PLATELET VOLUME 9.9 fl (7.4-10.4); PLATELET COUNT 246 10^3/UL (140-415); POSITIVE DIFF @See below; RED BLOOD COUNT 3.09 10^6/ul (4.70-6.10); RED CELL DISTRIBUTION WIDTH 22.6 % (11.5-14.5)
[2018-11-07 21:38] LABS: WHITE BLOOD COUNT 25.5 10^3/ul (4.8-10.8)
[2018-11-07 21:43] LABS: ADD MAN DIFF? YES
[2018-11-07 22:02] LABS: ALANINE AMINOTRANSFERASE 53 IU/L (13-69); ALBUMIN 3.5 g/dl (3.3-4.9); ALBUMIN/GLOBULIN RATIO 0.94; ALKALINE PHOSPHATASE 124 IU/L (42-121); ANION GAP 9 (5-13); ASPARTATE AMINO TRANSFERASE 44 IU/L (15-46); BILIRUBIN,INDIRECT 0.4 mg/dl (0-1.1); BILIRUBIN,TOTAL 0.4 mg/dl (0.2-1.3); BLOOD UREA NITROGEN 31 mg/dl (7-20); CALCIUM 11.2 mg/dl (8.4-10.2); CARBON DIOXIDE 23 mmol/L (21-31); CHLORIDE 104 mmol/L (97-110); CREATININE 0.73 mg/dl (0.61-1.24); Estimated GFR > 60 mL/min (>60); GLUCOSE 104 mg/dl (70-220); POTASSIUM 4.9 mmol/L (3.5-5.1); SODIUM 136 mmol/L (135-144); TOTAL PROTEIN 7.2 g/dl (6.1-8.1)
[2018-11-07 22:13] LABS: B-TYPE NATRIURETIC PEPTIDE 1020 PG/ML (0-125); TROPONIN-I < 0.012 ng/ml (0.000-0.120)
[2018-11-07 22:15] LABS: ANISOCYTOSIS 2+ (0-0); BAND NEUTROPHILS #M 0.2 10^3/ul (0.0-0.6); BAND NEUTROPHILS % (M) 1 % (0-4); LYMPHOCYTES #M 1.2 10^3/ul (0.8-2.9); LYMPHOCYTES % (M) 5 % (15-51); MICROCYTOSIS 2+ (0-0); MONOCYTE #M 1.2 10^3/ul (0.3-0.9); MONOCYTES % (M) 5 % (0-11); MYELOCYTES #M 0.2 10^3/ul (0.0-0.0); MYELOCYTES % (M) 1 % (0-0); PLATELET ESTIMATE NORMAL; POIKILOCYTOSIS 1+ (0-0); POLYCHROMASIA 2+ (0-0); SEG NEUT #M 22.5 10^3/ul (1.6-7.5); SEGMENTED NEUTROPHILS (M) % 88 % (39-77); SMUDGE%M 4 % (0-0)
[2018-11-07] MEDS: ONDANSETRON 4 MG INJ IV (23:12)
[2018-11-07] MEDS: HYDROmorphONE 1 MG/ML SYG IV (23:12)
[2018-11-07] MEDS ORDERED: DOCUSATE SODIUM 100 MG CAP PO (23:30)
[2018-11-07] MEDS ORDERED: ONDANSETRON 4 MG INJ IV ×2 (23:30)
[2018-11-07] MEDS ORDERED: NACL 0.9% 3 ML SYG IV (23:30)
[2018-11-07] MEDS ORDERED: ACETAMINOPHEN 325 MG TAB PO ×2 (23:30)
[2018-11-07] MEDS ORDERED: BISACODYL (EC) 5 MG TAB PO (23:30)
[2018-11-08] MEDS ORDERED: IPRATROPIUM (NEB) 0.5 MG/2.5 ML AMP HHN (01:00)
[2018-11-08] MEDS ORDERED: VANCOMYCIN IV PER PHARMACY XX (01:00)
[2018-11-08] MEDS: ALBUMIN HUMAN 25% 100 ML IV ×2 (02:07→03:41)
[2018-11-08] MEDS: HEPARIN 5,000 UNIT/1 ML VIAL SC ×3 (02:34→14:01)
[2018-11-08] MEDS: SOD CHLORIDE 0.9% 500 ML IV (04:19)
[2018-11-08] MEDS: PIPER-TAZO 3.375 GM IV (PMX) 100 ML IVPB ×3 (05:49→17:06)
[2018-11-08] MEDS: HYDROmorphONE 0.5 MG/0.5 ML SYG IV ×4 (05:49→21:12)
[2018-11-08 06:02] LABS: ADD MAN DIFF? NO
[2018-11-08 06:14] LABS: ABNORMAL IP MESSAGE 1; BASOPHILS % 0.1 % (0.0-2.0); EOSINOPHILS % 0.1 % (0.0-7.0); HEMATOCRIT 22.9 % (42.0-52.0); HEMOGLOBIN 7.2 g/dl (14.0-18.0); LYMPHOCYTES # 1.1 10^3/ul (0.8-2.9); LYMPHOCYTES % 5.1 % (15.0-51.0); MEAN CORPUSCULAR HEMOGLOBIN 27.4 pg (29.0-33.0); MEAN CORPUSCULAR HGB CONC 31.4 g/dl (32.0-37.0); MEAN CORPUSCULAR VOLUME 87.1 fl (82.0-101.0); MEAN PLATELET VOLUME 10.6 fl (7.4-10.4); MONOCYTE # 1.5 10^3/ul (0.3-0.9); NEUTROPHIL # 18.5 10^3/ul (1.6-7.5); NEUTROPHILS % 85.3 % (39.0-77.0); PLATELET COUNT 214 10^3/UL (140-415); POSITIVE DIFF @See below; RED BLOOD COUNT 2.63 10^6/ul (4.70-6.10); RED CELL DISTRIBUTION WIDTH 22.6 % (11.5-14.5)
[2018-11-08 06:14] LABS: WHITE BLOOD COUNT 21.7 10^3/ul (4.8-10.8)
[2018-11-08 06:17] LABS: ADD UMIC NO; UR ASCORBIC ACID 40 mg/dL (NEGATIVE); UR BILIRUBIN (Dip) NEGATIVE (NEGATIVE); UR BLOOD (Dip) NEGATIVE (NEGATIVE); UR CLARITY SLIGHTLY CLOUDY (CLEAR); UR COLOR AMBER (YELLOW); UR GLUCOSE (Dip) NEGATIVE (NEGATIVE); UR KETONES (Dip) NEGATIVE (NEGATIVE); UR LEUKOCYTE ESTERASE (Dip) NEGATIVE Leu/ul (NEGATIVE); UR NITRITE (Dip) NEGATIVE (NEGATIVE); UR RBC 6 /HPF (0-5); UR TOTAL PROTEIN (Dip) NEGATIVE (NEGATIVE); UR UROBILINOGEN (Dip) 1+ mg/dL (NEGATIVE); UR WBC 1 /HPF (0-5)
[2018-11-08 06:24] LABS: INR 1.26; PROTIME 15.9 Sec (11.9-14.9); PT RATIO 1.2
[2018-11-08 06:25] LABS: PARTIAL THROMBOPLASTIN TIME 24.7 Sec (23.0-35.0)
[2018-11-08] MEDS: VANCOMYCIN 1 GM in 250 ML IVPB (06:28)
[2018-11-08 06:33] LABS: MAGNESIUM 2.2 mg/dl (1.7-2.5)
[2018-11-08 06:46] LABS: ALANINE AMINOTRANSFERASE 47 IU/L (13-69); ALBUMIN 3.7 g/dl (3.3-4.9); ALBUMIN/GLOBULIN RATIO 1.12; ALKALINE PHOSPHATASE 110 IU/L (42-121); ANION GAP 8 (5-13); ASPARTATE AMINO TRANSFERASE 37 IU/L (15-46); BILIRUBIN,INDIRECT 0.6 mg/dl (0-1.1); BILIRUBIN,TOTAL 0.6 mg/dl (0.2-1.3); BLOOD UREA NITROGEN 28 mg/dl (7-20); CALCIUM 10.9 mg/dl (8.4-10.2); CARBON DIOXIDE 25 mmol/L (21-31); CHLORIDE 105 mmol/L (97-110); CREATININE 0.74 mg/dl (0.61-1.24); Estimated GFR > 60 mL/min (>60); GLUCOSE 82 mg/dl (70-220); POTASSIUM 4.7 mmol/L (3.5-5.1); SODIUM 138 mmol/L (135-144)
[2018-11-08] MEDS: SOD CHLORIDE 0.9% 100 ML (11:11)
[2018-11-08] MEDS: IOHEXOL 0 ML (11:11)
[2018-11-08] MEDS: SOD CHLORIDE 0.9% 0 ML (12:38)
[2018-11-08] MEDS: IOHEXOL 300MG/ML 150 ML BTL (12:38)
[2018-11-08] MEDS: LEVALBUTEROL (NEB) 1.25 MG/0.5 ML AMP HHN ×2 (13:58→20:15)
[2018-11-08] MEDS: IPRATROPIUM (NEB) 0.5 MG/2.5 ML AMP HHN ×2 (13:58→20:09)
[2018-11-08] MEDS: SOD CHLORIDE 0.9% 250 ML IV* (16:01)
[2018-11-08] MEDS: VANCOMYCIN 500 MG (PMX) 100 ML IVPB (19:03)
[2018-11-08] MEDS: BUDESONIDE (NEB) 0.5MG/2ML AMP HHN (20:10)
[2018-11-08 22:26] LABS: IMMEDIATE SPIN CROSSMATCH 1 2
[2018-11-09] MEDS: HYDROCODONE/APAP (5/325) TAB PO ×2 (00:47→08:58)
[2018-11-09] MEDS: PIPER-TAZO 3.375 GM IV (PMX) 100 ML IVPB ×4 (01:48→18:35)
[2018-11-09] MEDS: HYDROmorphONE 0.5 MG/0.5 ML SYG IV ×3 (01:48→09:48)
[2018-11-09] MEDS: LEVALBUTEROL (NEB) 1.25 MG/0.5 ML AMP HHN ×4 (02:06→20:29)
[2018-11-09 05:32] LABS: ADD MAN DIFF? NO
[2018-11-09 05:51] LABS: WHITE BLOOD COUNT 24.2 10^3/ul (4.8-10.8)
[2018-11-09 05:51] LABS: ABNORMAL IP MESSAGE 1; BASOPHILS % 0.1 % (0.0-2.0); EOSINOPHILS % 0.2 % (0.0-7.0); HEMATOCRIT 29.1 % (42.0-52.0); MEAN CORPUSCULAR HEMOGLOBIN 26.9 pg (29.0-33.0); MEAN CORPUSCULAR HGB CONC 30.9 g/dl (32.0-37.0); MEAN CORPUSCULAR VOLUME 87.1 fl (82.0-101.0); MEAN PLATELET VOLUME 10.2 fl (7.4-10.4); MONOCYTE # 1.5 10^3/ul (0.3-0.9); MONOCYTES % 6.3 % (0.0-11.0); NEUTROPHIL # 21.3 10^3/ul (1.6-7.5); PLATELET COUNT 226 10^3/UL (140-415); POSITIVE DIFF @See below; RED BLOOD COUNT 3.34 10^6/ul (4.70-6.10); RED CELL DISTRIBUTION WIDTH 21.7 % (11.5-14.5)
[2018-11-09] MEDS: VANCOMYCIN 500 MG (PMX) 100 ML IVPB ×2 (05:51→20:11)
[2018-11-09 06:04] LABS: ALANINE AMINOTRANSFERASE 39 IU/L (13-69); ALBUMIN 3.5 g/dl (3.3-4.9); ALBUMIN/GLOBULIN RATIO 1.02; ALKALINE PHOSPHATASE 137 IU/L (42-121); ANION GAP 10 (5-13); ASPARTATE AMINO TRANSFERASE 42 IU/L (15-46); BILIRUBIN,INDIRECT 1.1 mg/dl (0-1.1); BILIRUBIN,TOTAL 1.1 mg/dl (0.2-1.3); BLOOD UREA NITROGEN 22 mg/dl (7-20); CALCIUM 10.9 mg/dl (8.4-10.2); CARBON DIOXIDE 22 mmol/L (21-31); CHLORIDE 106 mmol/L (97-110); Estimated GFR > 60 mL/min (>60); GLUCOSE 95 mg/dl (70-220); POTASSIUM 4.5 mmol/L (3.5-5.1); SODIUM 138 mmol/L (135-144); TOTAL PROTEIN 6.9 g/dl (6.1-8.1)
[2018-11-09 06:13] LABS: MAGNESIUM 2.1 mg/dl (1.7-2.5)
[2018-11-09] MEDS: IPRATROPIUM (NEB) 0.5 MG/2.5 ML AMP HHN ×3 (09:05→20:29)
[2018-11-09] MEDS: BUDESONIDE (NEB) 0.5MG/2ML AMP HHN ×2 (09:15→20:30)
[2018-11-09] MEDS: HYDROmorphONE 1 MG/ML SYG IV (12:48)
[2018-11-09] MEDS ORDERED: MEGESTROL (40 MG/ML) 10ML CUP PO (13:00)
[2018-11-09] MEDS ORDERED: MEGESTROL 40 MG TAB PO (13:00)
[2018-11-09] MEDS: OXYCODONE/ACETAMINOPHEN (10/325) TAB PO (14:02)
[2018-11-09] MEDS ORDERED: HYDROmorphONE 2 MG/ML SYG IV (15:30)
[2018-11-09] MEDS: HYDROmorphONE 2 MG/ML SYG IV (16:48)
[2018-11-09] MEDS: HYDROmorphONE 0.2 MG/ML PCA IV ×2 (17:01→22:21)
[2018-11-09 18:15] LABS: VANCOMYCIN,TROUGH 10.2 ug/ml (10.0-20.0)
[2018-11-09] MEDS: DEXAMETHASONE 4 MG TAB PO (18:35)
[2018-11-09] MEDS: PANTOPRAZOLE (EC) 40 MG TAB PO (18:35)
[2018-11-09] MEDS: SUCRALFATE (100 MG/ML) 10ML CUP PO ×2 (18:35→20:27)
[2018-11-10] MEDS: PIPER-TAZO 3.375 GM IV (PMX) 100 ML IVPB ×5 (00:13→23:42)
[2018-11-10] MEDS: DEXAMETHASONE 4 MG TAB PO ×5 (00:13→23:42)
[2018-11-10] MEDS: LEVALBUTEROL (NEB) 1.25 MG/0.5 ML AMP HHN ×5 (02:32→20:10)
[2018-11-10] MEDS: HYDROmorphONE 0.2 MG/ML PCA IV ×4 (04:07→23:40)
[2018-11-10] MEDS: PANTOPRAZOLE (EC) 40 MG TAB PO ×2 (05:31→17:23)
[2018-11-10] MEDS: VANCOMYCIN 500 MG (PMX) 100 ML IVPB ×2 (05:31→18:07)
[2018-11-10 06:22] LABS: ADD MAN DIFF? NO
[2018-11-10 06:30] LABS: ABNORMAL IP MESSAGE 1; BASOPHILS % 0.1 % (0.0-2.0); HEMATOCRIT 30.9 % (42.0-52.0); HEMOGLOBIN 9.6 g/dl (14.0-18.0); LYMPHOCYTES # 0.5 10^3/ul (0.8-2.9); LYMPHOCYTES % 2.3 % (15.0-51.0); MEAN CORPUSCULAR HEMOGLOBIN 27.1 pg (29.0-33.0); MEAN CORPUSCULAR HGB CONC 31.1 g/dl (32.0-37.0); MEAN CORPUSCULAR VOLUME 87.3 fl (82.0-101.0); MONOCYTE # 0.6 10^3/ul (0.3-0.9); MONOCYTES % 2.5 % (0.0-11.0); NEUTROPHIL # 21.2 10^3/ul (1.6-7.5); NEUTROPHILS % 93.7 % (39.0-77.0); PLATELET COUNT 320 10^3/UL (140-415); POSITIVE DIFF @See below; RED BLOOD COUNT 3.54 10^6/ul (4.70-6.10); RED CELL DISTRIBUTION WIDTH 21.8 % (11.5-14.5)
[2018-11-10 06:30] LABS: WHITE BLOOD COUNT 22.6 10^3/ul (4.8-10.8)
[2018-11-10 06:57] LABS: ALANINE AMINOTRANSFERASE 26 IU/L (13-69); ALBUMIN 3.5 g/dl (3.3-4.9); ALBUMIN/GLOBULIN RATIO 0.94; ALKALINE PHOSPHATASE 121 IU/L (42-121); ANION GAP 15 (5-13); ASPARTATE AMINO TRANSFERASE 34 IU/L (15-46); BILIRUBIN,INDIRECT 0.6 mg/dl (0-1.1); BILIRUBIN,TOTAL 0.6 mg/dl (0.2-1.3); BLOOD UREA NITROGEN 19 mg/dl (7-20); CALCIUM 10.4 mg/dl (8.4-10.2); CARBON DIOXIDE 21 mmol/L (21-31); CHLORIDE 106 mmol/L (97-110); CREATININE 0.82 mg/dl (0.61-1.24); Estimated GFR > 60 mL/min (>60); GLUCOSE 131 mg/dl (70-220); POTASSIUM 4.8 mmol/L (3.5-5.1); SODIUM 142 mmol/L (135-144); TOTAL PROTEIN 7.2 g/dl (6.1-8.1)
[2018-11-10] MEDS: IPRATROPIUM (NEB) 0.5 MG/2.5 ML AMP HHN ×4 (08:23→20:09)
[2018-11-10] MEDS: BUDESONIDE (NEB) 0.5MG/2ML AMP HHN ×2 (08:23→20:09)
[2018-11-10] MEDS: SUCRALFATE (100 MG/ML) 10ML CUP PO ×4 (08:54→21:12)
[2018-11-10] MEDS: ALTEPLASE (CATHFLO) 2 MG INJ CATHETER (14:51)
[2018-11-10] MEDS: HYDROmorphONE 2 MG/ML SYG IV (21:40)
[2018-11-11] MEDS: LEVALBUTEROL (NEB) 1.25 MG/0.5 ML AMP HHN ×3 (02:28→13:32)
[2018-11-11] MEDS: HYDROmorphONE 2 MG/ML SYG IV ×8 (02:57→23:40)
[2018-11-11] MEDS: ALTEPLASE (CATHFLO) 2 MG INJ CATHETER (04:41)
[2018-11-11] MEDS: PIPER-TAZO 3.375 GM IV (PMX) 100 ML IVPB ×4 (05:27→23:40)
[2018-11-11] MEDS: DEXAMETHASONE 4 MG TAB PO ×4 (05:27→23:45)
[2018-11-11] MEDS: PANTOPRAZOLE (EC) 40 MG TAB PO ×2 (05:27→18:55)
[2018-11-11] MEDS: HYDROmorphONE 0.2 MG/ML PCA IV ×3 (05:57→18:46)
[2018-11-11] MEDS: VANCOMYCIN 750 MG (PMX) 250 ML IVPB ×2 (05:59→17:39)
[2018-11-11] MEDS: IPRATROPIUM (NEB) 0.5 MG/2.5 ML AMP HHN ×2 (07:48→13:32)
[2018-11-11] MEDS: BUDESONIDE (NEB) 0.5MG/2ML AMP HHN (07:49)
[2018-11-11] MEDS: SUCRALFATE (100 MG/ML) 10ML CUP PO ×4 (09:02→21:00)
[2018-11-11 09:48] LABS: ADD MAN DIFF? NO
[2018-11-11 09:49] LABS: WHITE BLOOD COUNT 21.5 10^3/ul (4.8-10.8)
[2018-11-11 09:49] LABS: ABNORMAL IP MESSAGE 1; BASOPHILS % 0.1 % (0.0-2.0); LYMPHOCYTES # 0.5 10^3/ul (0.8-2.9); LYMPHOCYTES % 2.3 % (15.0-51.0); MEAN CORPUSCULAR HEMOGLOBIN 27.5 pg (29.0-33.0); MEAN CORPUSCULAR VOLUME 88.7 fl (82.0-101.0); MEAN PLATELET VOLUME 10.7 fl (7.4-10.4); MONOCYTE # 0.7 10^3/ul (0.3-0.9); MONOCYTES % 3.1 % (0.0-11.0); NEUTROPHILS % 93.1 % (39.0-77.0); PLATELET COUNT 291 10^3/UL (140-415); POSITIVE DIFF @See below; RED BLOOD COUNT 3.27 10^6/ul (4.70-6.10); RED CELL DISTRIBUTION WIDTH 21.7 % (11.5-14.5)
[2018-11-11 10:18] LABS: MAGNESIUM 2.1 mg/dl (1.7-2.5)
[2018-11-11 10:18] LABS: ALANINE AMINOTRANSFERASE 26 IU/L (13-69); ALBUMIN 3.5 g/dl (3.3-4.9); ALBUMIN/GLOBULIN RATIO 1.02; ALKALINE PHOSPHATASE 98 IU/L (42-121); ANION GAP 12 (5-13); ASPARTATE AMINO TRANSFERASE 25 IU/L (15-46); BILIRUBIN,INDIRECT 0.3 mg/dl (0-1.1); BILIRUBIN,TOTAL 0.3 mg/dl (0.2-1.3); BLOOD UREA NITROGEN 23 mg/dl (7-20); CALCIUM 10.3 mg/dl (8.4-10.2); CARBON DIOXIDE 19 mmol/L (21-31); CHLORIDE 108 mmol/L (97-110); CREATININE 0.72 mg/dl (0.61-1.24); Estimated GFR > 60 mL/min (>60); GLUCOSE 163 mg/dl (70-220); SODIUM 139 mmol/L (135-144); TOTAL PROTEIN 6.9 g/dl (6.1-8.1)
[2018-11-12] MEDS: IPRATROPIUM (NEB) 0.5 MG/2.5 ML AMP HHN ×5 (00:15→20:11)
[2018-11-12] MEDS: LEVALBUTEROL (NEB) 1.25 MG/0.5 ML AMP HHN ×7 (00:15→20:11)
[2018-11-12] MEDS: BUDESONIDE (NEB) 0.5MG/2ML AMP HHN ×3 (00:15→20:11)
[2018-11-12] MEDS: HYDROmorphONE 0.2 MG/ML PCA IV ×3 (00:18→12:13)
[2018-11-12] MEDS: HYDROmorphONE 2 MG/ML SYG IV ×8 (02:06→21:51)
[2018-11-12] MEDS: PIPER-TAZO 3.375 GM IV (PMX) 100 ML IVPB ×3 (05:33→17:54)
[2018-11-12] MEDS: PANTOPRAZOLE (EC) 40 MG TAB PO ×2 (06:06→17:56)
[2018-11-12] MEDS: DEXAMETHASONE 4 MG TAB PO ×3 (06:06→17:55)
[2018-11-12] MEDS: VANCOMYCIN 750 MG (PMX) 250 ML IVPB ×2 (06:06→18:56)
[2018-11-12] MEDS: SUCRALFATE (100 MG/ML) 10ML CUP PO ×4 (08:42→21:29)
[2018-11-12] MEDS: ALTEPLASE (CATHFLO) 2 MG INJ CATHETER (14:37)
[2018-11-12] MEDS: IOHEXOL 100 ML (16:57)
[2018-11-12] MEDS: SOD CHLORIDE 0.9% 100 ML (16:57)
[2018-11-12 17:13] LABS: ABNORMAL IP MESSAGE 1; HEMATOCRIT 28.4 % (42.0-52.0); HEMOGLOBIN 8.6 g/dl (14.0-18.0); MEAN CORPUSCULAR HEMOGLOBIN 27.5 pg (29.0-33.0); MEAN CORPUSCULAR HGB CONC 30.3 g/dl (32.0-37.0); MEAN CORPUSCULAR VOLUME 90.7 fl (82.0-101.0); PLATELET COUNT 381 10^3/UL (140-415); POSITIVE DIFF @See below; RED BLOOD COUNT 3.13 10^6/ul (4.70-6.10); RED CELL DISTRIBUTION WIDTH 21.9 % (11.5-14.5)
[2018-11-12 17:13] LABS: WHITE BLOOD COUNT 35.2 10^3/ul (4.8-10.8)
[2018-11-12 17:24] LABS: ADD MAN DIFF? YES; PATH REVIEW? YES
[2018-11-12 17:40] LABS: ANION GAP 10 (5-13); BLOOD UREA NITROGEN 26 mg/dl (7-20); CALCIUM 11.2 mg/dl (8.4-10.2); CARBON DIOXIDE 21 mmol/L (21-31); CHLORIDE 109 mmol/L (97-110); CREATININE 0.83 mg/dl (0.61-1.24); Estimated GFR > 60 mL/min (>60); GLUCOSE 127 mg/dl (70-220); MAGNESIUM 2.3 mg/dl (1.7-2.5); PHOSPHORUS 2.3 mg/dl (2.5-4.9); POTASSIUM 3.7 mmol/L (3.5-5.1); SODIUM 140 mmol/L (135-144)
[2018-11-12 17:45] LABS: VANCOMYCIN,TROUGH 15.8 ug/ml (10.0-20.0)
[2018-11-12 18:19] LABS: ANISOCYTOSIS 2+ (0-0); BAND NEUTROPHILS #M 0.3 10^3/ul (0.0-0.6); BAND NEUTROPHILS % (M) 1 % (0-4); MICROCYTOSIS 2+ (0-0); MONOCYTES % (M) 3 % (0-11); PLATELET ESTIMATE NORMAL; POLYCHROMASIA 2+ (0-0); SEG NEUT #M 33.9 10^3/ul (1.6-7.5); SEGMENTED NEUTROPHILS (M) % 96 % (39-77); SMUDGE%M 3 % (0-0)
[2018-11-12] MEDS: HYDROmorphONE 50 MG in DEXTROSE 5% 45 ML IVPB (19:50)
[2018-11-12] MEDS: HYDROmorphONE 50 MG in DEXTROSE 5% 45 ML IV (21:46)
[2018-11-13] MEDS: DEXAMETHASONE 4 MG TAB PO ×2 (00:42→08:44)
[2018-11-13] MEDS: PIPER-TAZO 3.375 GM IV (PMX) 100 ML IVPB ×2 (00:42→06:02)
[2018-11-13] MEDS: HYDROmorphONE 2 MG/ML SYG IV ×6 (00:50→19:38)
[2018-11-13] MEDS: IPRATROPIUM (NEB) 0.5 MG/2.5 ML AMP HHN ×5 (02:31→19:59)
[2018-11-13] MEDS: LEVALBUTEROL (NEB) 1.25 MG/0.5 ML AMP HHN ×5 (02:31→19:59)
[2018-11-13] MEDS: PANTOPRAZOLE (EC) 40 MG TAB PO ×2 (06:47→18:00)
[2018-11-13] MEDS: VANCOMYCIN 750 MG (PMX) 250 ML IVPB ×2 (06:49→18:45)
[2018-11-13] MEDS: BUDESONIDE (NEB) 0.5MG/2ML AMP HHN ×3 (08:35→19:59)
[2018-11-13] MEDS: SUCRALFATE (100 MG/ML) 10ML CUP PO ×4 (08:44→21:00)
[2018-11-13] MEDS: HYDROmorphONE 50 MG in DEXTROSE 5% 45 ML IV (09:46)
[2018-11-13 10:14] LABS: ADD MAN DIFF? NO
[2018-11-13 10:50] LABS: ALANINE AMINOTRANSFERASE 34 IU/L (13-69); ALBUMIN 3.8 g/dl (3.3-4.9); ALBUMIN/GLOBULIN RATIO 1.11; ALKALINE PHOSPHATASE 122 IU/L (42-121); ANION GAP 17 (5-13); ASPARTATE AMINO TRANSFERASE 44 IU/L (15-46); BILIRUBIN,INDIRECT 0.5 mg/dl (0-1.1); BILIRUBIN,TOTAL 0.5 mg/dl (0.2-1.3); BLOOD UREA NITROGEN 25 mg/dl (7-20); CALCIUM 11.4 mg/dl (8.4-10.2); CARBON DIOXIDE 16 mmol/L (21-31); CHLORIDE 106 mmol/L (97-110); CREATININE 0.86 mg/dl (0.61-1.24); Estimated GFR > 60 mL/min (>60); GLUCOSE 128 mg/dl (70-220); POTASSIUM 4.9 mmol/L (3.5-5.1); SODIUM 139 mmol/L (135-144); TOTAL PROTEIN 7.2 g/dl (6.1-8.1)
[2018-11-13] MEDS: SOD CHLORIDE 0.9% 1,000 ML IV (11:41)
[2018-11-13] MEDS: HYDROmorphONE 0.2 MG/ML PCA IV (11:59)
[2018-11-13] MEDS: ENOXAPARIN 40 MG/0.4 ML SYG SC (13:00)
[2018-11-13] MEDS: METHADONE (1 MG/ML 5 ML PO UD SYG) PO (13:16)
[2018-11-13] MEDS: METHYLPREDNISOLONE 125 MG INJ IV ×2 (13:16→21:41)
[2018-11-13] MEDS: MEROPENEM 1 GM/50ML(PMX) 50 ML IVPB ×2 (14:35→22:03)
[2018-11-13 14:59] LABS: ABNORMAL IP MESSAGE 1; HEMATOCRIT 29.3 % (42.0-52.0); MEAN CORPUSCULAR HEMOGLOBIN 27.3 pg (29.0-33.0); MEAN CORPUSCULAR HGB CONC 30.7 g/dl (32.0-37.0); MEAN CORPUSCULAR VOLUME 88.8 fl (82.0-101.0); MEAN PLATELET VOLUME 10.8 fl (7.4-10.4); PLATELET COUNT 452 10^3/UL (140-415); POSITIVE DIFF @See below; RED CELL DISTRIBUTION WIDTH 22.6 % (11.5-14.5)
[2018-11-13 14:59] LABS: WHITE BLOOD COUNT 51.1 10^3/ul (4.8-10.8)
[2018-11-13 15:47] LABS: ANISOCYTOSIS 1+ (0-0); BAND NEUTROPHILS % (M) 4 % (0-4); BURR CELLS 2+ (0-0); MICROCYTOSIS 1+ (0-0); MONOCYTES % (M) 4 % (0-11); OVALOCYTES 1+ (0-0); PLATELET ESTIMATE NORMAL; POIKILOCYTOSIS 2+ (0-0); POLYCHROMASIA 1+ (0-0); SEGMENTED NEUTROPHILS (M) % 92 % (39-77); SMUDGE%M 4 % (0-0)
[2018-11-13] MEDS: LORAZEPAM 0.5 MG TAB PO (16:42)
[2018-11-13] MEDS: ENOXAPARIN 60 MG/0.6 ML SYG SC (21:00)
[2018-11-13] MEDS: LORAZEPAM 2 MG INJ IV (21:55)
[2018-11-13] MEDS: HALOPERIDOL 5 MG INJ IM (21:57)
[2018-11-13] MEDS: ALTEPLASE (CATHFLO) 2 MG INJ CATHETER (22:39)
[2018-11-14 01:14] LABS: ADD MAN DIFF? NO
[2018-11-14 01:16] LABS: ABNORMAL IP MESSAGE 1; BASOPHILS % 0.1 % (0.0-2.0); EOSINOPHILS % 0.1 % (0.0-7.0); HEMATOCRIT 25.4 % (42.0-52.0); HEMOGLOBIN 7.8 g/dl (14.0-18.0); LYMPHOCYTES # 0.3 10^3/ul (0.8-2.9); LYMPHOCYTES % 1.1 % (15.0-51.0); MEAN CORPUSCULAR HEMOGLOBIN 27.6 pg (29.0-33.0); MEAN CORPUSCULAR HGB CONC 30.7 g/dl (32.0-37.0); MEAN CORPUSCULAR VOLUME 89.8 fl (82.0-101.0); MEAN PLATELET VOLUME 10.3 fl (7.4-10.4); MONOCYTES % 3.4 % (0.0-11.0); NEUTROPHIL # 28.3 10^3/ul (1.6-7.5); NEUTROPHILS % 94.1 % (39.0-77.0); PLATELET COUNT 246 10^3/UL (140-415); POSITIVE DIFF @See below; RED BLOOD COUNT 2.83 10^6/ul (4.70-6.10); RED CELL DISTRIBUTION WIDTH 22.3 % (11.5-14.5)
[2018-11-14 01:40] LABS: LACTIC ACID 2.8 mmol/L (0.5-2.0)
[2018-11-14 01:41] LABS: ANION GAP 10 (5-13); BLOOD UREA NITROGEN 28 mg/dl (7-20); CALCIUM 10.4 mg/dl (8.4-10.2); CARBON DIOXIDE 20 mmol/L (21-31); CHLORIDE 110 mmol/L (97-110); CREATININE 0.69 mg/dl (0.61-1.24); Estimated GFR > 60 mL/min (>60); GLUCOSE 95 mg/dl (70-220); MAGNESIUM 2.5 mg/dl (1.7-2.5); PHOSPHORUS 2.8 mg/dl (2.5-4.9); POTASSIUM 4.4 mmol/L (3.5-5.1); SODIUM 140 mmol/L (135-144)
[2018-11-14] MEDS: LEVALBUTEROL (NEB) 1.25 MG/0.5 ML AMP HHN ×3 (01:48→08:00)
[2018-11-14] MEDS: IPRATROPIUM (NEB) 0.5 MG/2.5 ML AMP HHN ×3 (01:48→08:00)
[2018-11-14] MEDS: FUROSEMIDE 20 MG INJ IV (04:56)
[2018-11-14] MEDS: METHYLPREDNISOLONE 125 MG INJ IV (05:06)
[2018-11-14] MEDS: LORAZEPAM 2 MG INJ IV ×3 (05:33→12:52)
[2018-11-14] MEDS: MEROPENEM 1 GM/50ML(PMX) 50 ML IVPB (05:35)
[2018-11-14] MEDS: PANTOPRAZOLE (EC) 40 MG TAB PO (06:00)
[2018-11-14] MEDS: VANCOMYCIN 750 MG (PMX) 250 ML IVPB (06:15)
[2018-11-14] MEDS: SUCRALFATE (100 MG/ML) 10ML CUP PO ×2 (08:52→12:43)
[2018-11-14] MEDS: BUDESONIDE (NEB) 0.5MG/2ML AMP HHN (09:00)
[2018-11-14] MEDS: ENOXAPARIN 60 MG/0.6 ML SYG SC (09:35)
[2018-11-14] MEDS ORDERED: FUROSEMIDE 40 MG INJ IV (10:00)
[2018-11-14] MEDS ORDERED: ACETAMINOPHEN 650 MG SUPP PR (12:00)
[2018-11-14] MEDS ORDERED: SCOPOLAMINE 1.5 MG PATCH TRANSDERM (12:00)
[2018-11-14] MEDS: HALOPERIDOL 5 MG INJ IM (12:00)
[2018-11-14] MEDS: HYDROmorphONE 2 MG/ML SYG IV (13:07)
[2018-11-14] MEDS ORDERED: HYDROmorphONE 2 MG TAB PO (13:30)
[2018-11-14] MEDS: ATROPINE 1% 5 ML OPH SL (13:32)
[2018-11-14] MEDS: HYDROmorphONE 1 MG/ML SYG IV (13:40)
[2018-11-14] MEDS ORDERED: HYDROmorphONE 50 MG in DEXTROSE 5% 45 ML IV (15:30)
[2018-11-14] MEDS ORDERED: ONDANSETRON 4 MG TAB PO (21:00)
== END 2018-11-14 18:18 | disposition expired | DRG 871 ==
LOC: PP2 23:12 → E/R 16:56 → TEL 11-13 01:26 → MS1 11-14 13:35
PROC: 30233N1 Transfusion of Nonautologous Red Blood Cells into Peripheral Vein, Percutaneous Approach (ICD-10-PCS; principal; 2018-11-08)
PROC: 5A09357 Assistance with Respiratory Ventilation, Less than 24 Consecutive Hours, Continuous Positive Airway Pressure (ICD-10-PCS; 2018-11-13)
DX: A41.9 Sepsis, unspecified organism (principal); J18.9 Pneumonia, unspecified organism; J96.00 Acute respiratory failure, unspecified whether with hypoxia or hypercapnia; J91.8 Pleural effusion in other conditions classified elsewhere; E44.0 Moderate protein-calorie malnutrition; C79.9 Secondary malignant neoplasm of unspecified site; C34.31 Malignant neoplasm of lower lobe, right bronchus or lung; Z68.1 Body mass index [BMI] 19.9 or less, adult; I82.623 Acute embolism and thrombosis of deep veins of upper extremity, bilateral; E83.52 Hypercalcemia; R62.7 Adult failure to thrive; E86.0 Dehydration; Y95 Nosocomial condition; D50.9 Iron deficiency anemia, unspecified; D63.0 Anemia in neoplastic disease; J44.9 Chronic obstructive pulmonary disease, unspecified; G89.3 Neoplasm related pain (acute) (chronic); Z87.891 Personal history of nicotine dependence
CPT/HCPCS: 36430; 71045; 71260; 71275; 72100; 80048; 80053; 80202; 81001; 81003; 83605; 83735; 83880; 84100; 84484; 85025; 85610; 85730; 86850; 86900; 86901; 86920; 87040-91; 93005; 93970; 94640; 94660; 94664; 96374; 96375; 99285-25